=== PATIENT | female | born 1965 | race Caucasian/White ===

== ENCOUNTER 2017-05-26 15:36 | Emergency (ER) | payer OTHER ==
[~2017-05-26] VITALS: Ht 160 cm; Wt 65.8 kg
--- NOTE | 2017-05-26 18:00 | NUR ---
Pt awake and alert, ambulated to restroom with steady gait. NAD noted.
--- NOTE | 2017-05-26 18:15 | NUR ---
Pt sitting on gurey and eating dinner.
--- NOTE | 2017-05-26 18:35 | NUR ---
Patient discharged to home in stable conditon. Written and verbal after care instructions given. Patient verbalizes understanding of instructions. Harjit called for pt per her request. Pt ambulated out of ER with steady gait.
== END 2017-05-26 18:41 | disposition home or self-care (01) ==
LOC: ER 15:36
DX: F10.129 Alcohol abuse with intoxication, unspecified (principal)
CPT/HCPCS: 99281; A4663